=== PATIENT | male | born 1950 | race Two or more races ===

== ENCOUNTER → 2017-12-25 | Outpatient (CLI) | payer MEDICARE, MEDICAID ==
[2017-12-25 09:28] LABS: Basophils # (auto) 0 uL; Basophils % (auto) 0.7 % (0.0-2.0); Eosinophils # (auto) 0.2 uL; Eosinophils % (auto) 3.8 % (0.0-7.0); Hematocrit 43.9 % (41.0-53.0); Hemoglobin 14.4 g/dL (13.5-17.5); Lymphocytes # (auto) 0.9 uL; Lymphocytes % (auto) 14.4 % (10.0-50.0); Mean Corpuscular Hemoglobin 28.5 pg (28.0-32.0); Mean Corpuscular Hgb Conc. 32.7 g/dL (32.0-36.0); Mean Corpuscular Volume 87.3 fL (80.0-100.0); Monocytes # (auto) 0.4 uL; Monocytes % (auto) 6.2 % (0.0-12.0); Neutrophils # (auto) 4.7 uL; Neutrophils % (auto) 74.9 % (37.0-80.0); Platelet Count (auto) 212 10^3/uL (140-450); Red Blood Cells 5.03 10^6/uL (4.5-5.90); Red Cell Distribution Width 13.5 % (11.8-14.3); White Blood Cell 6.3 10^3/uL (4.4-10.8)
[2017-12-25 09:29] LABS: Urine Bacteria NONE SEEN /hpf (None Seen); Urine Blood Negative /uL (Negative); Urine Specific Gravity 1.018 (1.001-1.035); Urine WBC <1 /hpf (0 - 3)
[2017-12-25 09:54] LABS: Potassium 3.6 mmol/L (3.5-5.1)
[2017-12-25 10:00] LABS: BUN/Creatinine Ratio 9.1; Bilirubin, Total 0.3 mg/dL (0.2-1.0); Total Protein 8.5 g/dL (6.4-8.2)
== END | disposition home or self-care (01) ==
LOC: LAB 08:30
PROVIDERS: ATTEND Nurse Practitioner
DX: E11.49 Type 2 diabetes mellitus with other diabetic neurological complication (principal); E78.5 Hyperlipidemia, unspecified
CPT/HCPCS: 36415; 80053; 80061; 81001; 82043; 83036; 85025

== ENCOUNTER → 2018-07-16 | Outpatient (CLI) | payer MEDICARE, MEDICAID ==
[2018-07-16 09:11] LABS: Urine Blood TRACE /uL (Negative); Urine Specific Gravity 1.027 (1.001-1.035)
[2018-07-16 09:14] LABS: Basophils # (auto) 0 uL; Basophils % (auto) 0.6 % (0.0-2.0); Eosinophils # (auto) 0.2 uL; Eosinophils % (auto) 3.1 % (0.0-7.0); Hematocrit 40.9 % (41.0-53.0); Hemoglobin 13.4 g/dL (13.5-17.5); Lymphocytes # (auto) 1.1 uL; Lymphocytes % (auto) 17.6 % (10.0-50.0); Mean Corpuscular Hemoglobin 27.6 pg (28.0-32.0); Mean Corpuscular Hgb Conc. 32.8 g/dL (32.0-36.0); Mean Corpuscular Volume 84.1 fL (80.0-100.0); Monocytes # (auto) 0.5 uL; Monocytes % (auto) 7.7 % (0.0-12.0); Neutrophils # (auto) 4.5 uL; Nucleated Red Blood Cells % 0.1 %; Platelet Count (auto) 179 10^3/uL (140-450); Red Blood Cells 4.86 10^6/uL (4.5-5.90); Red Cell Distribution Width 13.5 % (11.8-14.3); White Blood Cell 6.3 10^3/uL (4.4-10.8)
[2018-07-16 09:29] LABS: INR 0.99 (0.9-1.15); Partial Thromboplastin Time 26.6 sec (23.64-32.05)
[2018-07-16 09:47] LABS: Albumin 3.9 g/dL (3.4-5.0); Calcium 8.8 mg/dL (8.5-10.1); Potassium 3.5 mmol/L (3.5-5.1)
[2018-07-16 09:51] LABS: BUN/Creatinine Ratio 9.4; Bilirubin, Total 0.4 mg/dL (0.2-1.0); Total Protein 7.6 g/dL (6.4-8.2)
== END | disposition home or self-care (01) ==
LOC: LAB 08:02
PROVIDERS: ATTEND Nurse Practitioner
DX: Z01.818 Encounter for other preprocedural examination (principal); E11.9 Type 2 diabetes mellitus without complications
CPT/HCPCS: 36415; 80053; 80061; 81003; 82043; 83036; 84443; 85025; 85610; 85730

== ENCOUNTER → 2018-10-21 | Outpatient (CLI) | payer MEDICARE, MEDICAID ==
[2018-10-21 09:54] LABS: Basophils # (auto) 0 uL; Basophils % (auto) 0.9 % (0.0-2.0); Eosinophils # (auto) 0.2 uL; Hemoglobin 13.3 g/dL (13.5-17.5); Lymphocytes # (auto) 0.8 uL; Lymphocytes % (auto) 15.9 % (10.0-50.0); Mean Corpuscular Hgb Conc. 33.2 g/dL (32.0-36.0); Mean Corpuscular Volume 84.5 fL (80.0-100.0); Monocytes # (auto) 0.4 uL; Monocytes % (auto) 7.5 % (0.0-12.0); Neutrophils # (auto) 3.7 uL; Neutrophils % (auto) 71.7 % (37.0-80.0); Platelet Count (auto) 153 10^3/uL (140-450); Red Blood Cells 4.74 10^6/uL (4.5-5.90); Red Cell Distribution Width 13.1 % (11.8-14.3); White Blood Cell 5.1 10^3/uL (4.4-10.8)
[2018-10-21 10:21] LABS: Potassium 3.6 mmol/L (3.5-5.1)
[2018-10-21 10:29] LABS: Albumin 3.6 g/dL (3.4-5.0); BUN/Creatinine Ratio 9.8; Bilirubin, Total 0.3 mg/dL (0.2-1.0); Calcium 8.4 mg/dL (8.5-10.1); Total Protein 7.6 g/dL (6.4-8.2)
== END | disposition home or self-care (01) ==
LOC: LAB 08:58
PROVIDERS: ATTEND Nurse Practitioner
DX: E78.5 Hyperlipidemia, unspecified (principal); E11.49 Type 2 diabetes mellitus with other diabetic neurological complication
CPT/HCPCS: 36415; 80053; 80061; 83036; 84443; 85025

== ENCOUNTER → 2018-12-31 | Outpatient (CLI) | payer MEDICARE, MEDICAID ==
[2018-12-31 09:26] LABS: Basophils # (auto) 0 uL; Basophils % (auto) 0.8 % (0.0-2.0); Eosinophils # (auto) 0.2 uL; Eosinophils % (auto) 3.8 % (0.0-7.0); Hematocrit 41.2 % (41.0-53.0); Hemoglobin 13.3 g/dL (13.5-17.5); Lymphocytes # (auto) 0.7 uL; Lymphocytes % (auto) 14.8 % (10.0-50.0); Mean Corpuscular Hemoglobin 27.7 pg (28.0-32.0); Mean Corpuscular Hgb Conc. 32.4 g/dL (32.0-36.0); Mean Corpuscular Volume 85.5 fL (80.0-100.0); Monocytes # (auto) 0.3 uL; Monocytes % (auto) 6.6 % (0.0-12.0); Neutrophils # (auto) 3.7 uL; Platelet Count (auto) 169 10^3/uL (140-450); Red Blood Cells 4.82 10^6/uL (4.5-5.90); Red Cell Distribution Width 13.6 % (11.8-14.3)
[2018-12-31 10:49] LABS: Albumin 3.7 g/dL (3.4-5.0); Calcium 9.2 mg/dL (8.5-10.1); Potassium 3.8 mmol/L (3.5-5.1)
[2018-12-31 10:54] LABS: BUN/Creatinine Ratio 9.2; Bilirubin, Total 0.2 mg/dL (0.2-1.0); Total Protein 7.4 g/dL (6.4-8.2)
== END | disposition home or self-care (01) ==
LOC: LAB 08:46
PROVIDERS: ATTEND Nurse Practitioner
DX: E03.9 Hypothyroidism, unspecified (principal); E11.9 Type 2 diabetes mellitus without complications
CPT/HCPCS: 36415; 80053; 80061; 83036; 84443; 85025

== ENCOUNTER → 2019-04-28 | Outpatient (CLI) | payer MEDICARE, MEDICAID ==
[2019-04-28 10:49] LABS: Basophils # (auto) 0 10 ^3/uL (0-0.2); Basophils % (auto) 0.8 % (0.0-2.0); Eosinophils # (auto) 0.2 10 ^3/uL (0-0.8); Eosinophils % (auto) 3.2 % (0.0-7.0); Hematocrit 41.8 % (41.0-53.0); Hemoglobin 13.5 g/dL (13.5-17.5); Lymphocytes # (auto) 0.8 10 ^3/uL (0.4-5.4); Lymphocytes % (auto) 14.9 % (10.0-50.0); Mean Corpuscular Hemoglobin 27.7 pg (28.0-32.0); Mean Corpuscular Hgb Conc. 32.2 g/dL (32.0-36.0); Mean Corpuscular Volume 85.9 fL (80.0-100.0); Monocytes # (auto) 0.4 10 ^3/uL (0-1.3); Monocytes % (auto) 7.6 % (0.0-12.0); Neutrophils % (auto) 73.5 % (37.0-80.0); Nucleated Red Blood Cells % 0.1 %; Platelet Count (auto) 171 10^3/uL (140-450); Red Blood Cells 4.86 10^6/uL (4.5-5.90); Red Cell Distribution Width 13.9 % (11.8-14.3); White Blood Cell 5.4 10^3/uL (4.4-10.8)
[2019-04-28 11:05] LABS: Urine Bacteria NONE SEEN /hpf (None Seen); Urine Blood Negative /uL (Negative); Urine Mucus FEW (None Seen); Urine Specific Gravity 1.022 (1.001-1.035); Urine WBC 4 /hpf (0 - 3)
[2019-04-28 11:25] LABS: Magnesium 2.3 mg/dL (1.6-2.6); Potassium 4.5 mmol/L (3.5-5.1)
[2019-04-28 11:32] LABS: Albumin 3.7 g/dL (3.4-5.0); BUN/Creatinine Ratio 10.5; Bilirubin, Total 0.2 mg/dL (0.2-1.0); Calcium 9.4 mg/dL (8.5-10.1); Phosphorus 3.9 mg/dL (2.5-4.90); Total Protein 7.6 g/dL (6.4-8.2)
== END | disposition home or self-care (01) ==
LOC: LAB 10:29
PROVIDERS: ATTEND Nurse Practitioner
DX: N18.3 Chronic kidney disease, stage 3 (moderate) (principal); E78.5 Hyperlipidemia, unspecified; N39.0 Urinary tract infection, site not specified
CPT/HCPCS: 36415; 80053; 80061; 81001; 83735; 83970; 84100; 84154; 84443; 85025; 87086

== ENCOUNTER 2020-01-13 17:41 | Inpatient (IN) | payer MEDICARE, MEDICAID ==
[~2020-01-13] VITALS: Ht 177.8 cm; Wt 95.0 kg
[2020-01-13 18:33] LABS: Basophils # (auto) 0 10 ^3/uL (0-0.2); Basophils % (auto) 0.1 % (0.0-2.0); Eosinophils # (auto) 0 10 ^3/uL (0-0.8); Eosinophils % (auto) 0.1 % (0.0-7.0); Hematocrit 35.6 % (41.0-53.0); Hemoglobin 11.6 g/dL (13.5-17.5); Lymphocytes # (auto) 0.3 10 ^3/uL (0.4-5.4); Lymphocytes % (auto) 3.2 % (10.0-50.0); Mean Corpuscular Hemoglobin 27.3 pg (28.0-32.0); Mean Corpuscular Hgb Conc. 32.5 g/dL (32.0-36.0); Mean Corpuscular Volume 83.8 fL (80.0-100.0); Monocytes # (auto) 0.4 10 ^3/uL (0-1.3); Monocytes % (auto) 3.7 % (0.0-12.0); Neutrophils # (auto) 9.1 10 ^3/uL (1.6-8.6); Neutrophils % (auto) 92.9 % (37.0-80.0); Platelet Count (auto) 138 10^3/uL (140-450); Red Blood Cells 4.25 10^6/uL (4.5-5.90); Red Cell Distribution Width 15.2 % (11.8-14.3); White Blood Cell 9.8 10^3/uL (4.4-10.8)
[2020-01-13 18:49] LABS: Alanine Aminotransferase 42 U/L (16-61); Albumin 2.8 g/dL (3.4-5.0); Anion Gap 9 (5-15); Aspartate Aminotransferase 36 U/L (15-37); BUN/Creatinine Ratio 10.4; Blood Urea Nitrogen 15 mg/dL (7-18); Calcium 8.3 mg/dL (8.5-10.1); Carbon Dioxide 19 mmol/L (21-32); Chloride 115 mmol/L (98-107); GFR African American 63 mL/min; GFR Non-African American 52 mL/min; Glucose 85 mg/dL (74-106); Potassium 3.3 mmol/L (3.5-5.1); Sodium 143 mmol/L (136-145)
[2020-01-13 18:51] LABS: Alkaline Phosphatase 79 U/L (45-117); Bilirubin, Total 0.4 mg/dL (0.2-1.0); Total Protein 6.8 g/dL (6.4-8.2)
[2020-01-13] MEDS ORDERED: ALBUTEROL SULF 2.5 MG/0.5ML(0.5%) NEB SOLN NEB ONE (19:30)
[2020-01-13] MEDS ORDERED: methylPREDNISolone SOD SUCC 125 MG/2 ML VL IV ONE (19:30)
[2020-01-13] MEDS ORDERED: IPRATROPIUM BROM 0.5 MG/2.5ML INH SOL NEB ONE (19:30)
[2020-01-13] MEDS ORDERED: ACETAMINOPHEN 325 MG TAB PO ONE (20:15)
[2020-01-13 21:59] LABS: Urine Bacteria NONE SEEN /hpf (None Seen); Urine Blood Negative /uL (Negative); Urine Specific Gravity 1.014 (1.001-1.035); Urine WBC <1 /hpf (0 - 3)
[2020-01-13] MEDS ORDERED: POTASSIUM CHL 20 Meq TABLET PO ONE (23:00)
[2020-01-13] MEDS ORDERED: cefTRIAXone 1GM/50ML D5W 50 ML IV ONE (23:00)
[2020-01-14 00:13] LABS: INR 1.08 (0.9-1.15); Partial Thromboplastin Time 35.9 sec (23.0-31.2)
[2020-01-14] MEDS ORDERED: ONDANSETRON HCL 4 MG/2 ML VIAL IV PRN (00:45)
[2020-01-14] MEDS ORDERED: NITROGLYCERIN 0.4 MG SL TAB SL PRN (00:45)
[2020-01-14] MEDS ORDERED: TEMAZEPAM 15 MG CAP PO PRN (00:45)
[2020-01-14] MEDS ORDERED: MORPHINE SULF INJ 2 MG/ML SYRINGE 1ML IV PRN (00:45)
[2020-01-14 01:23] LABS: Magnesium 2.3 mg/dL (1.6-2.6)
[2020-01-14 01:34] LABS: Lactate Dehydrogenase 460 U/L (87-241)
[2020-01-14 01:40] LABS: CRP High Sensitivity > 19.0 mg/dL (< 0.3)
[2020-01-14 02:45] VITALS: BP 119/62
[2020-01-14] MEDS ORDERED: IPRATROPIUM BROM 0.5 MG/2.5ML INH SOL NEB SCH (06:00)
[2020-01-14] MEDS: LEVOTHYROXINE SODIUM 50 MCG TAB PO SCH (06:36)
[2020-01-14] MEDS ORDERED: ROPI2TAB4 PO (06:44)
[2020-01-14] MEDS ORDERED: PRA1C PO (06:44)
[2020-01-14] MEDS ORDERED: QUET300T23 PO (06:44)
[2020-01-14] MEDS ORDERED: SIMV-8 PO (06:44)
[2020-01-14] MEDS ORDERED: METH500T22 PO (06:44)
[2020-01-14] MEDS ORDERED: CALC667C PO (06:44)
[2020-01-14] MEDS ORDERED: FAMO-12 PO (06:44)
[2020-01-14] MEDS ORDERED: METO25TA5 PO (06:44)
[2020-01-14] MEDS ORDERED: LEVO50TA7 PO (06:44)
[2020-01-14] MEDS ORDERED: ZOLP5TAB5 PO (06:44)
[2020-01-14] MEDS ORDERED: GLIP10TA9 PO (06:44)
[2020-01-14] MEDS ORDERED: PREG50CA PO (06:44)
[2020-01-14] MEDS ORDERED: SERT-274 PO (06:44)
[2020-01-14] MEDS ORDERED: B-CO-15 OR (06:44)
[2020-01-14] MEDS ORDERED: GABA300C10 PO (06:44)
[2020-01-14] MEDS ORDERED: TOPI1CAP24 OR (06:44)
[2020-01-14] MEDS: BUDESONIDE (INHALATION) 180 MCG IH IN SCH ×3 (06:46→21:31)
[2020-01-14 09:09] VITALS: BP 127/63
[2020-01-14] MEDS ORDERED: DexAMETHasone SOD PHOS 10MG/1ML VIAL INJ IV SCH (10:00)
[2020-01-14] MEDS ORDERED: REMDESIVIR PER PHARMACY IV SCH (12:15)
[2020-01-14] MEDS ORDERED: DEXTROSE (50%) 50ML SYRG IV PRN (12:15)
[2020-01-14] MEDS ORDERED: methylPREDNISolone SOD SUCC 40 MG/ML VL IM ONE (12:15)
[2020-01-14] MEDS: DOXYCYCLINE 100MG/250ML 250 ML IV SCH ×2 (12:16→22:32)
[2020-01-14] MEDS: ASPirin 81 mg TAB PO SCH (12:16)
[2020-01-14] MEDS: ZINC SULFATE 220mg CAP or TAB PO SCH (12:17)
[2020-01-14] MEDS: ASCORBIC ACID 1,000 MG TAB PO SCH (12:17)
[2020-01-14] MEDS: CHOLECALCIFEROL (VITD3) 2,000 UNIT CAP PO SCH (12:17)
[2020-01-14] MEDS: FAMOTIDINE 20 MG TAB PO SCH ×2 (12:17→22:33)
[2020-01-14] MEDS: ENOXAPARIN SOD 40 MG/0.4 ML SYRINGE SC SCH ×2 (12:18→22:34)
[2020-01-14] MEDS ORDERED: HYDR-4798 PO (12:54)
[2020-01-14] MEDS ORDERED: MELO1TAB56 PO (12:54)
[2020-01-14] MEDS ORDERED: PRED20TA2 PO (12:54)
[2020-01-14 13:06] VITALS: BP 128/63
[2020-01-14] MEDS: methylPREDNISolone SOD SUCC 40 MG/ML VL IV SCH ×2 (16:11→22:31)
[2020-01-14] MEDS: GABAPENTIN 300 MG CAP PO SCH ×2 (16:12→22:32)
[2020-01-14 17:00] VITALS: BP 140/71
[2020-01-14] MEDS: ACCU-CHEK COMFORT CURVE STRIP VI SCH ×2 (17:18→22:34)
[2020-01-14] MEDS: InsuLIN REG 1unit/0.01ml Soln (100units/ml) SC SCH ×2 (17:19→23:03)
[2020-01-14] MEDS ORDERED: IPRATROPIUM BROMIDE HFA AER IN SCH (18:00)
[2020-01-14] MEDS: IPRATROPIUM BROMIDE HFA AER IN SCH (21:31)
[2020-01-14 22:00] VITALS: BP 133/73
[2020-01-14] MEDS ORDERED: ATORVASTATIN 20 MG TAB PO SCH (22:00)
[2020-01-14] MEDS: ATORVASTATIN 20 MG TAB PO SCH (22:32)
[2020-01-14] MEDS: TOPIRAMATE 100 MG TAB PO SCH (22:33)
[2020-01-14] MEDS: ACETAMINOPHEN 325 MG TAB PO PRN (23:02)
[2020-01-15 05:00] VITALS: BP 120/65
[2020-01-15] MEDS: BUDESONIDE (INHALATION) 180 MCG IH IN SCH ×2 (06:09→19:45)
[2020-01-15] MEDS: IPRATROPIUM BROMIDE HFA AER IN SCH ×2 (06:09→14:00)
[2020-01-15] MEDS: LEVOTHYROXINE SODIUM 50 MCG TAB PO SCH (06:53)
[2020-01-15] MEDS: ACCU-CHEK COMFORT CURVE STRIP VI SCH ×4 (06:53→22:59)
[2020-01-15] MEDS: methylPREDNISolone SOD SUCC 40 MG/ML VL IV SCH ×3 (06:53→22:27)
[2020-01-15] MEDS: GABAPENTIN 300 MG CAP PO SCH ×3 (06:53→22:26)
[2020-01-15] MEDS: InsuLIN REG 1unit/0.01ml Soln (100units/ml) SC SCH ×4 (06:55→23:18)
[2020-01-15 07:34] LABS: Albumin 2.7 g/dL (3.4-5.0); Calcium 8.5 mg/dL (8.5-10.1); Potassium 3.3 mmol/L (3.5-5.1)
[2020-01-15 07:38] LABS: BUN/Creatinine Ratio 18.5; Bilirubin, Total 0.4 mg/dL (0.2-1.0); Total Protein 7.3 g/dL (6.4-8.2)
[2020-01-15 08:06] LABS: Basophils # (auto) 0 10 ^3/uL (0-0.2); Basophils % (auto) 0.1 % (0.0-2.0); Eosinophils # (auto) 0 10 ^3/uL (0-0.8); Hemoglobin 13.1 g/dL (13.5-17.5); Monocytes # (auto) 0.4 10 ^3/uL (0-1.3); Neutrophils # (auto) 12.2 10 ^3/uL (1.6-8.6)
[2020-01-15 08:08] LABS: Hematocrit 41.7 % (41.0-53.0); Lymphocytes # (auto) 0.8 10 ^3/uL (0.4-5.4); Mean Corpuscular Hemoglobin 26.7 pg (28.0-32.0); Mean Corpuscular Hgb Conc. 31.3 g/dL (32.0-36.0); Mean Corpuscular Volume 85.2 fL (80.0-100.0); Monocytes % (auto) 3.3 % (0.0-12.0); Neutrophils % (auto) 90.6 % (37.0-80.0); Nucleated Red Blood Cells % 0.1 %; Platelet Count (auto) 180 10^3/uL (140-450); Red Blood Cells 4.89 10^6/uL (4.5-5.90); Red Cell Distribution Width 15.4 % (11.8-14.3); White Blood Cell 13.5 10^3/uL (4.4-10.8)
[2020-01-15 08:52] VITALS: BP 121/70
[2020-01-15 13:00] VITALS: BP 107/61
[2020-01-15] MEDS: ASPirin 81 mg TAB PO SCH (13:15)
[2020-01-15] MEDS: ZINC SULFATE 220mg CAP or TAB PO SCH (13:15)
[2020-01-15] MEDS: DOXYCYCLINE 100MG/250ML 250 ML IV SCH ×2 (13:15→23:00)
[2020-01-15] MEDS: CHOLECALCIFEROL (VITD3) 2,000 UNIT CAP PO SCH (13:16)
[2020-01-15] MEDS: FAMOTIDINE 20 MG TAB PO SCH ×2 (13:16→22:26)
[2020-01-15] MEDS: TOPIRAMATE 100 MG TAB PO SCH ×2 (13:16→22:27)
[2020-01-15] MEDS: SERTRALINE HCL 50 MG TAB PO SCH (13:16)
[2020-01-15] MEDS: ASCORBIC ACID 1,000 MG TAB PO SCH (13:16)
[2020-01-15] MEDS: ENOXAPARIN SOD 40 MG/0.4 ML SYRINGE SC SCH ×2 (13:17→22:28)
[2020-01-15 16:55] VITALS: BP 115/52
[2020-01-15] MEDS: LORazepam 2MG/ML-1ML VIAL IV PRN (19:39)
[2020-01-15] MEDS: IPRATROPIUM BROMIDE HFA AER IN PRN (21:09)
[2020-01-15 22:00] VITALS: BP 141/77
[2020-01-15] MEDS: ATORVASTATIN 20 MG TAB PO SCH (22:26)
[2020-01-16] VITALS (10 sets, daily range): BP systolic 114–133; BP diastolic 49–73
[2020-01-16] MEDS: LORazepam 2MG/ML-1ML VIAL IV PRN ×2 (03:59→20:31)
[2020-01-16] MEDS: methylPREDNISolone SOD SUCC 40 MG/ML VL IV SCH ×3 (06:00→22:55)
[2020-01-16] MEDS: GABAPENTIN 300 MG CAP PO SCH ×3 (06:00→22:56)
[2020-01-16] MEDS: ACCU-CHEK COMFORT CURVE STRIP VI SCH ×4 (06:44→22:57)
[2020-01-16] MEDS: InsuLIN REG 1unit/0.01ml Soln (100units/ml) SC SCH ×4 (06:48→22:58)
[2020-01-16] MEDS: LEVOTHYROXINE SODIUM 50 MCG TAB PO SCH (06:48)
[2020-01-16] MEDS: BUDESONIDE (INHALATION) 180 MCG IH IN SCH ×2 (08:08→20:10)
[2020-01-16] MEDS: FAMOTIDINE 20 MG TAB PO SCH ×2 (10:12→22:57)
[2020-01-16] MEDS: DOXYCYCLINE 100MG/250ML 250 ML IV SCH ×2 (10:12→22:55)
[2020-01-16] MEDS: ZINC SULFATE 220mg CAP or TAB PO SCH (10:14)
[2020-01-16] MEDS: ASPirin 81 mg TAB PO SCH (10:14)
[2020-01-16] MEDS: ASCORBIC ACID 1,000 MG TAB PO SCH (10:14)
[2020-01-16] MEDS: TOPIRAMATE 100 MG TAB PO SCH ×2 (10:15→22:57)
[2020-01-16] MEDS: SERTRALINE HCL 50 MG TAB PO SCH (10:15)
[2020-01-16] MEDS: CHOLECALCIFEROL (VITD3) 2,000 UNIT CAP PO SCH (10:15)
[2020-01-16] MEDS: ENOXAPARIN SOD 40 MG/0.4 ML SYRINGE SC SCH ×2 (10:16→22:57)
[2020-01-16] MEDS: IPRATROPIUM BROMIDE HFA AER IN PRN (20:38)
[2020-01-16] MEDS: ATORVASTATIN 20 MG TAB PO SCH (22:56)
[2020-01-17 05:00] VITALS: BP 134/76
[2020-01-17] MEDS: ACCU-CHEK COMFORT CURVE STRIP VI SCH ×4 (06:07→22:00)
[2020-01-17] MEDS: methylPREDNISolone SOD SUCC 40 MG/ML VL IV SCH ×3 (06:15→22:19)
[2020-01-17] MEDS: GABAPENTIN 300 MG CAP PO SCH ×3 (06:15→20:47)
[2020-01-17] MEDS: LEVOTHYROXINE SODIUM 50 MCG TAB PO SCH (06:16)
[2020-01-17] MEDS: LORazepam 2MG/ML-1ML VIAL IV PRN ×2 (06:16→20:48)
[2020-01-17] MEDS: InsuLIN REG 1unit/0.01ml Soln (100units/ml) SC SCH ×4 (06:17→22:00)
[2020-01-17] MEDS: BUDESONIDE (INHALATION) 180 MCG IH IN SCH ×2 (07:32→23:00)
[2020-01-17 08:08] LABS: Basophils # (auto) 0 10 ^3/uL (0-0.2); Eosinophils # (auto) 0 10 ^3/uL (0-0.8); Hematocrit 39.7 % (41.0-53.0); Lymphocytes # (auto) 0.5 10 ^3/uL (0.4-5.4); Lymphocytes % (auto) 6.5 % (10.0-50.0); Mean Corpuscular Hemoglobin 27.5 pg (28.0-32.0); Mean Corpuscular Hgb Conc. 32.8 g/dL (32.0-36.0); Mean Corpuscular Volume 83.9 fL (80.0-100.0); Monocytes # (auto) 0.2 10 ^3/uL (0-1.3); Monocytes % (auto) 2.6 % (0.0-12.0); Neutrophils # (auto) 7.2 10 ^3/uL (1.6-8.6); Neutrophils % (auto) 90.9 % (37.0-80.0); Nucleated Red Blood Cells % 0.1 %; Platelet Count (auto) 172 10^3/uL (140-450); Red Blood Cells 4.74 10^6/uL (4.5-5.90); White Blood Cell 7.9 10^3/uL (4.4-10.8)
[2020-01-17 08:29] VITALS: BP 125/69
[2020-01-17 08:31] LABS: Potassium 3.6 mmol/L (3.5-5.1)
[2020-01-17 08:40] LABS: BUN/Creatinine Ratio 22.3; Calcium 8.4 mg/dL (8.5-10.1)
[2020-01-17] MEDS: ASCORBIC ACID 1,000 MG TAB PO SCH (09:50)
[2020-01-17] MEDS: DOXYCYCLINE 100MG/250ML 250 ML IV SCH ×2 (09:50→22:21)
[2020-01-17] MEDS: SERTRALINE HCL 50 MG TAB PO SCH (09:50)
[2020-01-17] MEDS: TOPIRAMATE 100 MG TAB PO SCH ×2 (09:51→22:19)
[2020-01-17] MEDS: ASPirin 81 mg TAB PO SCH (09:51)
[2020-01-17] MEDS: ZINC SULFATE 220mg CAP or TAB PO SCH (09:51)
[2020-01-17] MEDS: CHOLECALCIFEROL (VITD3) 2,000 UNIT CAP PO SCH (09:52)
[2020-01-17] MEDS: ENOXAPARIN SOD 40 MG/0.4 ML SYRINGE SC SCH ×2 (09:53→22:21)
[2020-01-17] MEDS: FAMOTIDINE 20 MG TAB PO SCH ×2 (10:36→22:19)
[2020-01-17 12:24] VITALS: BP 114/68
[2020-01-17 16:49] VITALS: BP 135/73
[2020-01-17] MEDS ORDERED: REMDESIVIR 200 MG in NS 210ml LOADING DOSE ADULT IV ONE (17:00)
[2020-01-17 18:01] VITALS: BP 122/71
[2020-01-17 21:52] VITALS: BP 113/51
[2020-01-17] MEDS: ATORVASTATIN 20 MG TAB PO SCH (22:19)
[2020-01-18] MEDS: LORazepam 2MG/ML-1ML VIAL IV PRN ×4 (02:37→22:48)
[2020-01-18 05:00] VITALS: BP 107/64
[2020-01-18] MEDS: GABAPENTIN 300 MG CAP PO SCH ×3 (05:58→21:14)
[2020-01-18] MEDS: ACCU-CHEK COMFORT CURVE STRIP VI SCH ×4 (05:59→22:46)
[2020-01-18] MEDS: LEVOTHYROXINE SODIUM 50 MCG TAB PO SCH (05:59)
[2020-01-18] MEDS: methylPREDNISolone SOD SUCC 40 MG/ML VL IV SCH ×3 (05:59→21:12)
[2020-01-18] MEDS: InsuLIN REG 1unit/0.01ml Soln (100units/ml) SC SCH ×4 (06:06→22:54)
[2020-01-18 07:21] LABS: Basophils # (auto) 0 10 ^3/uL (0-0.2); Basophils % (auto) 0.1 % (0.0-2.0); Eosinophils # (auto) 0 10 ^3/uL (0-0.8); Hematocrit 40.1 % (41.0-53.0); Hemoglobin 13.2 g/dL (13.5-17.5); Lymphocytes # (auto) 0.5 10 ^3/uL (0.4-5.4); Lymphocytes % (auto) 5.2 % (10.0-50.0); Mean Corpuscular Hemoglobin 27.4 pg (28.0-32.0); Mean Corpuscular Hgb Conc. 32.8 g/dL (32.0-36.0); Mean Corpuscular Volume 83.4 fL (80.0-100.0); Monocytes # (auto) 0.3 10 ^3/uL (0-1.3); Monocytes % (auto) 2.9 % (0.0-12.0); Neutrophils # (auto) 8.6 10 ^3/uL (1.6-8.6); Neutrophils % (auto) 91.8 % (37.0-80.0); Platelet Count (auto) 175 10^3/uL (140-450); Red Blood Cells 4.81 10^6/uL (4.5-5.90); Red Cell Distribution Width 14.6 % (11.8-14.3); White Blood Cell 9.4 10^3/uL (4.4-10.8)
[2020-01-18 07:28] LABS: Potassium 4.3 mmol/L (3.5-5.1)
[2020-01-18 07:38] LABS: Albumin 2.6 g/dL (3.4-5.0); BUN/Creatinine Ratio 23.7; Bilirubin, Total 0.5 mg/dL (0.2-1.0); Calcium 8.5 mg/dL (8.5-10.1); Magnesium 2.8 mg/dL (1.6-2.6); Total Protein 7.1 g/dL (6.4-8.2)
[2020-01-18] MEDS: BUDESONIDE (INHALATION) 180 MCG IH IN SCH ×2 (08:02→21:47)
[2020-01-18] MEDS: IPRATROPIUM BROMIDE HFA AER IN PRN (08:02)
[2020-01-18 09:00] VITALS: BP 123/72
[2020-01-18] MEDS: FAMOTIDINE 20 MG TAB PO SCH ×2 (10:00→21:13)
[2020-01-18] MEDS: CHOLECALCIFEROL (VITD3) 2,000 UNIT CAP PO SCH (10:17)
[2020-01-18] MEDS: DOXYCYCLINE 100MG/250ML 250 ML IV SCH ×2 (10:17→21:12)
[2020-01-18] MEDS: ASPirin 81 mg TAB PO SCH (10:18)
[2020-01-18] MEDS: ZINC SULFATE 220mg CAP or TAB PO SCH (10:18)
[2020-01-18] MEDS: TOPIRAMATE 100 MG TAB PO SCH ×2 (10:18→21:13)
[2020-01-18] MEDS: ASCORBIC ACID 1,000 MG TAB PO SCH (10:19)
[2020-01-18] MEDS: ENOXAPARIN SOD 40 MG/0.4 ML SYRINGE SC SCH (10:19)
[2020-01-18] MEDS: SERTRALINE HCL 50 MG TAB PO SCH (10:20)
[2020-01-18 13:00] VITALS: BP 130/67
[2020-01-18 17:00] VITALS: BP 131/66
[2020-01-18] MEDS: REMDESIVIR 100 MG in SODIUM CHL 0.9% 250 ML IV SCH (17:06)
[2020-01-18] MEDS: ATORVASTATIN 20 MG TAB PO SCH (21:13)
[2020-01-18 22:00] VITALS: BP 127/74
[2020-01-19] MEDS: ENOXAPARIN SOD 40 MG/0.4 ML SYRINGE SC SCH ×3 (00:20→21:54)
[2020-01-19 05:00] VITALS: BP 135/70
[2020-01-19] MEDS: GABAPENTIN 300 MG CAP PO SCH ×3 (05:44→21:54)
[2020-01-19] MEDS: methylPREDNISolone SOD SUCC 40 MG/ML VL IV SCH ×3 (05:44→21:55)
[2020-01-19] MEDS: InsuLIN REG 1unit/0.01ml Soln (100units/ml) SC SCH ×4 (06:28→22:13)
[2020-01-19] MEDS: ACCU-CHEK COMFORT CURVE STRIP VI SCH ×4 (06:28→22:11)
[2020-01-19] MEDS: BUDESONIDE (INHALATION) 180 MCG IH IN SCH ×2 (06:43→21:07)
[2020-01-19] MEDS: LEVOTHYROXINE SODIUM 50 MCG TAB PO SCH (06:49)
[2020-01-19 08:50] VITALS: BP 125/70
[2020-01-19] MEDS: ASPirin 81 mg TAB PO SCH (10:27)
[2020-01-19] MEDS: TOPIRAMATE 100 MG TAB PO SCH ×2 (10:28→21:54)
[2020-01-19] MEDS: CHOLECALCIFEROL (VITD3) 2,000 UNIT CAP PO SCH (10:28)
[2020-01-19] MEDS: FAMOTIDINE 20 MG TAB PO SCH ×2 (10:28→23:13)
[2020-01-19] MEDS: ASCORBIC ACID 1,000 MG TAB PO SCH (10:28)
[2020-01-19] MEDS: SERTRALINE HCL 50 MG TAB PO SCH (10:29)
[2020-01-19] MEDS: ZINC SULFATE 220mg CAP or TAB PO SCH (10:29)
[2020-01-19] MEDS: LORazepam 2MG/ML-1ML VIAL IV PRN ×2 (10:30→22:25)
[2020-01-19] MEDS ORDERED: FUROSEMIDE 20 MG/2 ML VIAL IV ONE (12:30)
[2020-01-19] MEDS ORDERED: POTASSIUM CHL 20 Meq TABLET PO ONE (12:30)
[2020-01-19 13:00] VITALS: BP 114/68
[2020-01-19 17:00] VITALS: BP 131/68
[2020-01-19] MEDS: REMDESIVIR 100 MG in SODIUM CHL 0.9% 250 ML IV SCH (17:08)
[2020-01-19] MEDS: IPRATROPIUM BROMIDE HFA AER IN PRN (21:10)
[2020-01-19] MEDS: ATORVASTATIN 20 MG TAB PO SCH (21:54)
[2020-01-19 22:00] VITALS: BP 129/69
[2020-01-20 05:00] VITALS: BP 111/74
[2020-01-20] MEDS: GABAPENTIN 300 MG CAP PO SCH ×3 (06:18→22:23)
[2020-01-20] MEDS: ACCU-CHEK COMFORT CURVE STRIP VI SCH ×4 (06:18→22:00)
[2020-01-20] MEDS: methylPREDNISolone SOD SUCC 40 MG/ML VL IV SCH ×3 (06:18→22:23)
[2020-01-20] MEDS: LEVOTHYROXINE SODIUM 50 MCG TAB PO SCH (06:18)
[2020-01-20] MEDS: InsuLIN REG 1unit/0.01ml Soln (100units/ml) SC SCH ×4 (06:20→22:00)
[2020-01-20] MEDS: LORazepam 2MG/ML-1ML VIAL IV PRN ×2 (07:43→22:23)
[2020-01-20] MEDS: BUDESONIDE (INHALATION) 180 MCG IH IN SCH ×2 (07:58→23:04)
[2020-01-20] MEDS: IPRATROPIUM BROMIDE HFA AER IN PRN ×2 (07:59→23:04)
[2020-01-20 08:50] LABS: Potassium 4.3 mmol/L (3.5-5.1)
[2020-01-20 09:00] VITALS: BP 122/69
[2020-01-20 09:12] LABS: Albumin 2.7 g/dL (3.4-5.0); BUN/Creatinine Ratio 26.4; Bilirubin, Total 0.6 mg/dL (0.2-1.0); Calcium 8.7 mg/dL (8.5-10.1); Total Protein 7.6 g/dL (6.4-8.2)
[2020-01-20] MEDS: TOPIRAMATE 100 MG TAB PO SCH ×2 (10:00→22:24)
[2020-01-20] MEDS: SERTRALINE HCL 50 MG TAB PO SCH (12:25)
[2020-01-20] MEDS: CHOLECALCIFEROL (VITD3) 2,000 UNIT CAP PO SCH (12:25)
[2020-01-20] MEDS: ASCORBIC ACID 1,000 MG TAB PO SCH (12:25)
[2020-01-20] MEDS: ZINC SULFATE 220mg CAP or TAB PO SCH (12:26)
[2020-01-20] MEDS: FAMOTIDINE 20 MG TAB PO SCH ×2 (12:26→22:23)
[2020-01-20] MEDS: ASPirin 81 mg TAB PO SCH (12:26)
[2020-01-20] MEDS: ENOXAPARIN SOD 40 MG/0.4 ML SYRINGE SC SCH ×2 (12:26→22:24)
[2020-01-20 13:00] VITALS: BP 128/60
[2020-01-20 17:00] VITALS: BP_SYST 121; BP_SYST 145; BP_DIAS 50; BP_DIAS 83
[2020-01-20] MEDS: REMDESIVIR 100 MG in SODIUM CHL 0.9% 250 ML IV SCH (19:35)
[2020-01-20 19:50] VITALS: BP 119/73
[2020-01-20 20:40] VITALS: BP 118/67
[2020-01-20] MEDS: ATORVASTATIN 20 MG TAB PO SCH (22:23)
[2020-01-21] MEDS: LORazepam 2MG/ML-1ML VIAL IV PRN ×3 (04:22→17:54)
[2020-01-21 05:30] VITALS: BP 102/51
[2020-01-21] MEDS: LEVOTHYROXINE SODIUM 50 MCG TAB PO SCH (06:06)
[2020-01-21] MEDS: GABAPENTIN 300 MG CAP PO SCH ×3 (06:06→22:30)
[2020-01-21] MEDS: ACCU-CHEK COMFORT CURVE STRIP VI SCH ×4 (06:07→22:31)
[2020-01-21] MEDS: methylPREDNISolone SOD SUCC 40 MG/ML VL IV SCH ×3 (06:07→22:30)
[2020-01-21] MEDS: InsuLIN REG 1unit/0.01ml Soln (100units/ml) SC SCH ×4 (06:07→22:47)
[2020-01-21] MEDS: BUDESONIDE (INHALATION) 180 MCG IH IN SCH ×2 (06:32→20:25)
[2020-01-21 09:00] VITALS: BP 118/71
[2020-01-21] MEDS: CHOLECALCIFEROL (VITD3) 2,000 UNIT CAP PO SCH (10:45)
[2020-01-21] MEDS: ZINC SULFATE 220mg CAP or TAB PO SCH (10:45)
[2020-01-21] MEDS: ASCORBIC ACID 1,000 MG TAB PO SCH (10:45)
[2020-01-21] MEDS: ASPirin 81 mg TAB PO SCH (10:45)
[2020-01-21] MEDS: SERTRALINE HCL 50 MG TAB PO SCH (10:45)
[2020-01-21] MEDS: ENOXAPARIN SOD 40 MG/0.4 ML SYRINGE SC SCH ×2 (10:49→22:31)
[2020-01-21] MEDS: TOPIRAMATE 100 MG TAB PO SCH ×2 (10:50→22:31)
[2020-01-21] MEDS: FAMOTIDINE 20 MG TAB PO SCH ×2 (10:50→22:31)
[2020-01-21] MEDS ORDERED: REMDESIVIR PER PHARMACY IV SCH (11:30)
[2020-01-21 12:57] VITALS: BP 102/55
[2020-01-21] MEDS: REMDESIVIR 100 MG in SODIUM CHL 0.9% 250 ML IV SCH (16:15)
[2020-01-21 17:00] VITALS: BP 136/59
[2020-01-21] MEDS: IPRATROPIUM BROMIDE HFA AER IN PRN (20:30)
[2020-01-21] MEDS: ATORVASTATIN 20 MG TAB PO SCH (22:30)
[2020-01-21 23:41] VITALS: BP 120/51
[2020-01-22] MEDS: LORazepam 2MG/ML-1ML VIAL IV PRN ×3 (00:16→21:53)
[2020-01-22] MEDS: methylPREDNISolone SOD SUCC 40 MG/ML VL IV SCH ×3 (06:12→21:53)
[2020-01-22] MEDS: GABAPENTIN 300 MG CAP PO SCH ×3 (06:12→20:07)
[2020-01-22] MEDS: ACCU-CHEK COMFORT CURVE STRIP VI SCH ×4 (06:13→21:53)
[2020-01-22] MEDS: InsuLIN REG 1unit/0.01ml Soln (100units/ml) SC SCH ×4 (06:13→21:53)
[2020-01-22] MEDS: LEVOTHYROXINE SODIUM 50 MCG TAB PO SCH (06:13)
[2020-01-22 06:29] VITALS: BP 102/52
[2020-01-22 08:36] LABS: Basophils # (auto) 0 10 ^3/uL (0-0.2); Eosinophils # (auto) 0 10 ^3/uL (0-0.8); Lymphocytes # (auto) 0.2 10 ^3/uL (0.4-5.4); Monocytes # (auto) 0.3 10 ^3/uL (0-1.3); White Blood Cell 12.9 10^3/uL (4.4-10.8)
[2020-01-22 08:39] LABS: Basophils % (auto) 0.2 % (0.0-2.0); Hematocrit 47.1 % (41.0-53.0); Hemoglobin 14.4 g/dL (13.5-17.5); Lymphocytes % (auto) 1.9 % (10.0-50.0); Mean Corpuscular Hemoglobin 26.4 pg (28.0-32.0); Mean Corpuscular Hgb Conc. 30.6 g/dL (32.0-36.0); Mean Corpuscular Volume 86.3 fL (80.0-100.0); Monocytes % (auto) 2.1 % (0.0-12.0); Neutrophils # (auto) 12.3 10 ^3/uL (1.6-8.6); Neutrophils % (auto) 95.8 % (37.0-80.0); Platelet Count (auto) 274 10^3/uL (140-450); Red Blood Cells 5.45 10^6/uL (4.5-5.90)
[2020-01-22 09:00] VITALS: BP 128/76
[2020-01-22 09:00] LABS: BUN/Creatinine Ratio 30.5; Calcium 8.7 mg/dL (8.5-10.1); Potassium 4.2 mmol/L (3.5-5.1)
[2020-01-22] MEDS: BUDESONIDE (INHALATION) 180 MCG IH IN SCH ×3 (09:47→22:00)
[2020-01-22] MEDS: ASPirin 81 mg TAB PO SCH (10:55)
[2020-01-22] MEDS: TOPIRAMATE 100 MG TAB PO SCH ×2 (10:56→20:07)
[2020-01-22] MEDS: ZINC SULFATE 220mg CAP or TAB PO SCH (10:56)
[2020-01-22] MEDS: FAMOTIDINE 20 MG TAB PO SCH ×2 (10:56→20:07)
[2020-01-22] MEDS: ASCORBIC ACID 1,000 MG TAB PO SCH (10:57)
[2020-01-22] MEDS: ENOXAPARIN SOD 40 MG/0.4 ML SYRINGE SC SCH ×2 (10:58→20:08)
[2020-01-22] MEDS: CHOLECALCIFEROL (VITD3) 2,000 UNIT CAP PO SCH (10:58)
[2020-01-22] MEDS: SERTRALINE HCL 50 MG TAB PO SCH (10:58)
[2020-01-22 13:00] VITALS: BP 115/66
[2020-01-22 16:41] VITALS: BP 125/74
[2020-01-22] MEDS: ATORVASTATIN 20 MG TAB PO SCH (20:06)
[2020-01-22 20:18] VITALS: BP 157/69
[2020-01-23] MEDS: methylPREDNISolone SOD SUCC 40 MG/ML VL IV SCH ×3 (05:31→22:24)
[2020-01-23] MEDS: LEVOTHYROXINE SODIUM 50 MCG TAB PO SCH (05:31)
[2020-01-23] MEDS: GABAPENTIN 300 MG CAP PO SCH ×3 (05:31→22:24)
[2020-01-23] MEDS: LORazepam 2MG/ML-1ML VIAL IV PRN ×2 (05:31→22:25)
[2020-01-23 06:00] VITALS: BP 121/74
[2020-01-23] MEDS: InsuLIN REG 1unit/0.01ml Soln (100units/ml) SC SCH ×4 (06:37→22:26)
[2020-01-23] MEDS: ACCU-CHEK COMFORT CURVE STRIP VI SCH ×4 (06:37→22:25)
[2020-01-23] MEDS: BUDESONIDE (INHALATION) 180 MCG IH IN SCH (10:00)
[2020-01-23] MEDS: ASPirin 81 mg TAB PO SCH (10:37)
[2020-01-23] MEDS: ZINC SULFATE 220mg CAP or TAB PO SCH (10:37)
[2020-01-23] MEDS: FAMOTIDINE 20 MG TAB PO SCH ×2 (10:37→22:24)
[2020-01-23] MEDS: SERTRALINE HCL 50 MG TAB PO SCH (10:38)
[2020-01-23] MEDS: ENOXAPARIN SOD 40 MG/0.4 ML SYRINGE SC SCH (10:38)
[2020-01-23] MEDS: TOPIRAMATE 100 MG TAB PO SCH ×2 (10:38→22:24)
[2020-01-23] MEDS: ASCORBIC ACID 1,000 MG TAB PO SCH (10:38)
[2020-01-23] MEDS: CHOLECALCIFEROL (VITD3) 2,000 UNIT CAP PO SCH (10:38)
[2020-01-23 12:00] VITALS: BP 134/76
[2020-01-23] MEDS ORDERED: FUROSEMIDE 20 MG/2 ML VIAL IV ONE (13:00)
[2020-01-23] MEDS ORDERED: POTASSIUM CHL 20 Meq TABLET PO ONE (13:00)
[2020-01-23] MEDS: PIPERACILLIN-TAZOB 3.375GM 100 ML IV SCH ×2 (14:38→22:24)
[2020-01-23] MEDS: IPRATROPIUM BROMIDE HFA AER IN PRN (16:07)
[2020-01-23 17:00] VITALS: BP 126/91
[2020-01-23 22:00] VITALS: BP 123/52
[2020-01-23] MEDS: ATORVASTATIN 20 MG TAB PO SCH (22:24)
[2020-01-23] MEDS: ENOXAPARIN SOD 60 MG/0.6 ML SYRINGE SC SCH (22:25)
[2020-01-24 05:00] VITALS: BP 116/75
[2020-01-24] MEDS: methylPREDNISolone SOD SUCC 40 MG/ML VL IV SCH ×3 (07:08→21:27)
[2020-01-24] MEDS: LEVOTHYROXINE SODIUM 50 MCG TAB PO SCH (07:09)
[2020-01-24] MEDS: ACCU-CHEK COMFORT CURVE STRIP VI SCH ×4 (07:09→21:27)
[2020-01-24] MEDS: GABAPENTIN 300 MG CAP PO SCH ×3 (07:09→21:26)
[2020-01-24] MEDS: PIPERACILLIN-TAZOB 3.375GM 100 ML IV SCH ×3 (07:09→21:26)
[2020-01-24] MEDS: InsuLIN REG 1unit/0.01ml Soln (100units/ml) SC SCH ×4 (07:10→21:28)
[2020-01-24] MEDS: MORPHINE SULF INJ 2 MG/ML SYRINGE 1ML IV PRN ×2 (07:32→21:28)
[2020-01-24 09:00] VITALS: BP 128/82
[2020-01-24] MEDS: BUDESONIDE (INHALATION) 180 MCG IH IN SCH ×2 (10:00→21:36)
[2020-01-24] MEDS: FUROSEMIDE 20 MG/2 ML VIAL IV SCH (10:42)
[2020-01-24] MEDS: ASPirin 81 mg TAB PO SCH (10:43)
[2020-01-24] MEDS: POTASSIUM CHL 20 Meq TABLET PO SCH (10:43)
[2020-01-24] MEDS: ZINC SULFATE 220mg CAP or TAB PO SCH (10:43)
[2020-01-24] MEDS: ASCORBIC ACID 1,000 MG TAB PO SCH (10:44)
[2020-01-24] MEDS: FAMOTIDINE 20 MG TAB PO SCH ×2 (10:44→21:26)
[2020-01-24] MEDS: TOPIRAMATE 100 MG TAB PO SCH ×2 (10:44→21:27)
[2020-01-24] MEDS: CHOLECALCIFEROL (VITD3) 2,000 UNIT CAP PO SCH (10:44)
[2020-01-24] MEDS: SERTRALINE HCL 50 MG TAB PO SCH (10:44)
[2020-01-24] MEDS: ENOXAPARIN SOD 60 MG/0.6 ML SYRINGE SC SCH ×2 (10:45→21:26)
[2020-01-24] MEDS: IPRATROPIUM BROMIDE HFA AER IN PRN ×2 (12:42→21:36)
[2020-01-24 13:00] VITALS: BP 127/83
[2020-01-24 16:43] LABS: Basophils # (auto) 0 10 ^3/uL (0-0.2); Eosinophils # (auto) 0 10 ^3/uL (0-0.8); Hematocrit 46.7 % (41.0-53.0); Lymphocytes # (auto) 0.3 10 ^3/uL (0.4-5.4); Lymphocytes % (auto) 2.1 % (10.0-50.0); Mean Corpuscular Hemoglobin 26.9 pg (28.0-32.0); Mean Corpuscular Hgb Conc. 32.2 g/dL (32.0-36.0); Mean Corpuscular Volume 83.7 fL (80.0-100.0); Monocytes # (auto) 0.4 10 ^3/uL (0-1.3); Neutrophils # (auto) 13.8 10 ^3/uL (1.6-8.6); Neutrophils % (auto) 94.9 % (37.0-80.0); Nucleated Red Blood Cells % 0.1 %; Platelet Count (auto) 323 10^3/uL (140-450); Red Blood Cells 5.58 10^6/uL (4.5-5.90); Red Cell Distribution Width 14.2 % (11.8-14.3); White Blood Cell 14.5 10^3/uL (4.4-10.8)
[2020-01-24 17:00] VITALS: BP 117/74
[2020-01-24 17:01] LABS: BUN/Creatinine Ratio 28.1; Calcium 8.6 mg/dL (8.5-10.1); Potassium 3.9 mmol/L (3.5-5.1)
[2020-01-24] MEDS: ATORVASTATIN 20 MG TAB PO SCH (21:26)
[2020-01-24 22:00] VITALS: BP 139/74
[2020-01-25 04:55] VITALS: BP 119/72
[2020-01-25] MEDS: GABAPENTIN 300 MG CAP PO SCH ×3 (06:57→22:58)
[2020-01-25] MEDS: methylPREDNISolone SOD SUCC 40 MG/ML VL IV SCH ×3 (06:57→22:57)
[2020-01-25] MEDS: PIPERACILLIN-TAZOB 3.375GM 100 ML IV SCH ×3 (06:57→22:58)
[2020-01-25] MEDS: InsuLIN REG 1unit/0.01ml Soln (100units/ml) SC SCH ×4 (06:58→22:59)
[2020-01-25] MEDS: LEVOTHYROXINE SODIUM 50 MCG TAB PO SCH (06:58)
[2020-01-25] MEDS: ACCU-CHEK COMFORT CURVE STRIP VI SCH ×4 (06:58→22:58)
[2020-01-25] MEDS: BUDESONIDE (INHALATION) 180 MCG IH IN SCH ×2 (07:08→20:31)
[2020-01-25 09:00] VITALS: BP 125/75
[2020-01-25] MEDS: FUROSEMIDE 20 MG/2 ML VIAL IV SCH (09:12)
[2020-01-25] MEDS: POTASSIUM CHL 20 Meq TABLET PO SCH (09:13)
[2020-01-25] MEDS: TOPIRAMATE 100 MG TAB PO SCH ×2 (09:13→23:00)
[2020-01-25] MEDS: FAMOTIDINE 20 MG TAB PO SCH ×2 (09:13→22:58)
[2020-01-25] MEDS: ZINC SULFATE 220mg CAP or TAB PO SCH (09:13)
[2020-01-25] MEDS: ASPirin 81 mg TAB PO SCH (09:13)
[2020-01-25] MEDS: ASCORBIC ACID 1,000 MG TAB PO SCH (09:14)
[2020-01-25] MEDS: ENOXAPARIN SOD 60 MG/0.6 ML SYRINGE SC SCH ×2 (09:14→22:58)
[2020-01-25] MEDS: CHOLECALCIFEROL (VITD3) 2,000 UNIT CAP PO SCH (09:14)
[2020-01-25] MEDS: SERTRALINE HCL 50 MG TAB PO SCH (09:14)
[2020-01-25] MEDS: MORPHINE SULF INJ 2 MG/ML SYRINGE 1ML IV PRN ×3 (09:15→19:46)
[2020-01-25 13:00] VITALS: BP 114/66
[2020-01-25 15:38] LABS: Basophils # (auto) 0 10 ^3/uL (0-0.2); Eosinophils # (auto) 0 10 ^3/uL (0-0.8); Hematocrit 44.9 % (41.0-53.0); Hemoglobin 14.7 g/dL (13.5-17.5); Lymphocytes # (auto) 0.4 10 ^3/uL (0.4-5.4); Lymphocytes % (auto) 2.3 % (10.0-50.0); Mean Corpuscular Hgb Conc. 32.6 g/dL (32.0-36.0); Mean Corpuscular Volume 82.7 fL (80.0-100.0); Monocytes # (auto) 0.6 10 ^3/uL (0-1.3); Monocytes % (auto) 3.9 % (0.0-12.0); Neutrophils # (auto) 15.4 10 ^3/uL (1.6-8.6); Neutrophils % (auto) 93.8 % (37.0-80.0); Platelet Count (auto) 341 10^3/uL (140-450); Red Blood Cells 5.43 10^6/uL (4.5-5.90); Red Cell Distribution Width 14.2 % (11.8-14.3); White Blood Cell 16.5 10^3/uL (4.4-10.8)
[2020-01-25] MEDS: LORazepam 2MG/ML-1ML VIAL IV PRN (15:47)
[2020-01-25 16:00] LABS: Albumin 2.5 g/dL (3.4-5.0); Calcium 8.5 mg/dL (8.5-10.1); Magnesium 3.1 mg/dL (1.6-2.6); Potassium 3.7 mmol/L (3.5-5.1)
[2020-01-25 16:08] LABS: BUN/Creatinine Ratio 31.5; Bilirubin, Total 0.5 mg/dL (0.2-1.0); CRP High Sensitivity 1.71 mg/dL (< 0.3); Total Protein 7.2 g/dL (6.4-8.2)
[2020-01-25 16:55] VITALS: BP 111/63
[2020-01-25 22:00] VITALS: BP 120/71
[2020-01-25] MEDS: ATORVASTATIN 20 MG TAB PO SCH (22:58)
[2020-01-26] MEDS: MORPHINE SULF INJ 2 MG/ML SYRINGE 1ML IV PRN ×2 (02:03→20:11)
[2020-01-26 05:00] VITALS: BP 118/69
[2020-01-26] MEDS: methylPREDNISolone SOD SUCC 40 MG/ML VL IV SCH ×3 (06:34→21:12)
[2020-01-26] MEDS: PIPERACILLIN-TAZOB 3.375GM 100 ML IV SCH ×3 (06:35→21:13)
[2020-01-26] MEDS: LEVOTHYROXINE SODIUM 50 MCG TAB PO SCH (06:35)
[2020-01-26] MEDS: GABAPENTIN 300 MG CAP PO SCH ×3 (06:35→21:13)
[2020-01-26] MEDS: ACCU-CHEK COMFORT CURVE STRIP VI SCH ×4 (06:35→23:48)
[2020-01-26] MEDS: InsuLIN REG 1unit/0.01ml Soln (100units/ml) SC SCH ×3 (06:36→17:00)
[2020-01-26 08:52] LABS: Albumin 2.4 g/dL (3.4-5.0); BUN/Creatinine Ratio 35.8; Bilirubin, Total 0.5 mg/dL (0.2-1.0); Calcium 8.1 mg/dL (8.5-10.1); Total Protein 6.7 g/dL (6.4-8.2)
[2020-01-26] MEDS: BUDESONIDE (INHALATION) 180 MCG IH IN SCH ×2 (10:00→22:00)
[2020-01-26] MEDS: FUROSEMIDE 20 MG/2 ML VIAL IV SCH (10:00)
[2020-01-26] MEDS: ASPirin 81 mg TAB PO SCH (15:23)
[2020-01-26] MEDS: ZINC SULFATE 220mg CAP or TAB PO SCH (15:24)
[2020-01-26] MEDS: FAMOTIDINE 20 MG TAB PO SCH ×2 (15:24→21:13)
[2020-01-26] MEDS: CHOLECALCIFEROL (VITD3) 2,000 UNIT CAP PO SCH (15:24)
[2020-01-26] MEDS: ASCORBIC ACID 1,000 MG TAB PO SCH (15:24)
[2020-01-26] MEDS: TOPIRAMATE 100 MG TAB PO SCH ×2 (15:24→21:14)
[2020-01-26] MEDS: POTASSIUM CHL 20 Meq TABLET PO SCH (15:24)
[2020-01-26] MEDS: ENOXAPARIN SOD 60 MG/0.6 ML SYRINGE SC SCH ×2 (15:25→21:14)
[2020-01-26] MEDS: SERTRALINE HCL 50 MG TAB PO SCH (15:25)
[2020-01-26] MEDS ORDERED: PPN PER PHARMACY 0 ML IV SCH (18:00)
[2020-01-26 20:00] VITALS: BP 117/67
[2020-01-26] MEDS: AMINO ACID INFUSION IN D10W 1,000 ML IV NR (20:14)
[2020-01-26] MEDS: ATORVASTATIN 20 MG TAB PO SCH (21:13)
[2020-01-26 21:38] VITALS: BP 117/67
[2020-01-27] VITALS (20 sets, daily range): BP systolic 48–126; BP diastolic 23–75
[2020-01-27] MEDS ORDERED: DEXTROSE (50%) 50ML SYRG IV SCH
[2020-01-27] MEDS: InsuLIN REG 1unit/0.01ml Soln (100units/ml) SC SCH ×4 (00:01→18:21)
[2020-01-27] MEDS: MORPHINE SULF INJ 2 MG/ML SYRINGE 1ML IV PRN ×2 (00:01→04:05)
[2020-01-27] MEDS: ACETAMINOPHEN 325 MG TAB PO PRN (02:22)
[2020-01-27] MEDS: GABAPENTIN 300 MG CAP PO SCH (06:07)
[2020-01-27] MEDS: LEVOTHYROXINE SODIUM 50 MCG TAB PO SCH (06:07)
[2020-01-27] MEDS: ACCU-CHEK COMFORT CURVE STRIP VI SCH ×3 (06:07→18:15)
[2020-01-27] MEDS: PIPERACILLIN-TAZOB 3.375GM 100 ML IV SCH ×3 (06:07→22:00)
[2020-01-27] MEDS: methylPREDNISolone SOD SUCC 40 MG/ML VL IV SCH ×3 (06:07→22:00)
[2020-01-27] MEDS: BUDESONIDE (INHALATION) 180 MCG IH IN SCH ×2 (10:00→22:00)
[2020-01-27] MEDS: TOPIRAMATE 100 MG TAB PO SCH ×2 (10:36→22:00)
[2020-01-27] MEDS: FAMOTIDINE 20 MG TAB PO SCH ×2 (10:37→22:00)
[2020-01-27] MEDS: CHOLECALCIFEROL (VITD3) 2,000 UNIT CAP PO SCH (10:37)
[2020-01-27] MEDS: ENOXAPARIN SOD 60 MG/0.6 ML SYRINGE SC SCH ×2 (10:38→22:00)
[2020-01-27] MEDS: SERTRALINE HCL 50 MG TAB PO SCH (10:38)
[2020-01-27] MEDS: ASCORBIC ACID 1,000 MG TAB PO SCH (10:38)
[2020-01-27] MEDS: ASPirin 81 mg TAB PO SCH (10:38)
[2020-01-27] MEDS: ZINC SULFATE 220mg CAP or TAB PO SCH (10:38)
[2020-01-27 11:53] LABS: Hematocrit 33.7 % (41.0-53.0); Hemoglobin 10.8 g/dL (13.5-17.5); Mean Corpuscular Hemoglobin 26.7 pg (28.0-32.0); Mean Corpuscular Hgb Conc. 32.1 g/dL (32.0-36.0); Mean Corpuscular Volume 83.2 fL (80.0-100.0); Platelet Count (auto) 336 10^3/uL (140-450); Red Blood Cells 4.05 10^6/uL (4.5-5.90); Red Cell Distribution Width 14.1 % (11.8-14.3); White Blood Cell 24.2 10^3/uL (4.4-10.8)
[2020-01-27 12:01] LABS: Potassium 3.7 mmol/L (3.5-5.1)
[2020-01-27 12:04] LABS: Pre Albumin 13.1 mg/dL (20.0-40.0)
[2020-01-27 12:09] LABS: Albumin 2.5 g/dL (3.4-5.0); BUN/Creatinine Ratio 36.4; Bilirubin, Total 0.6 mg/dL (0.2-1.0); Calcium 8.1 mg/dL (8.5-10.1); Magnesium 3.1 mg/dL (1.6-2.6); Phosphorus 3.9 mg/dL (2.5-4.90); Total Protein 6.3 g/dL (6.4-8.2)
[2020-01-27 12:17] LABS: Basophils % (manual) 0 (0.0-2.0); Blast Cells 0; Eosinophils % (manual) 0 (0-7); Promyelocytes % 0; Reactive Lymphocytes 0
[2020-01-27 12:32] LABS: Band Neutrophils % (manual) 7; Lymphocytes % (manual) 2 (10.0-50.0); Metamyelocytes % 3; Monocytes % (manual) 2 (0-12); Myelocytes % 1
[2020-01-27] MEDS: SODIUM CHLORIDE 0.9% 1,000 ML IV SCH ×2 (13:00→23:00)
[2020-01-27] MEDS ORDERED: DOPamine 1600MCG/ML D5W 250 ML IV SCH (13:00)
[2020-01-27] MEDS: LORazepam 2MG/ML-1ML VIAL IV PRN (16:07)
[2020-01-27] MEDS ORDERED: SUCCINYLCHOLINE CHLORIDE 20 MG/ML 10ML VIAL IV ONE (18:30)
[2020-01-27] MEDS ORDERED: ROCURONIUM 10MG/ML 10ML VIAL IV ONE (18:33)
[2020-01-27] MEDS ORDERED: ETOMIDATE (2MG/ML) 20ML VIAL IV ONE ×2 (18:33→19:15)
[2020-01-27] MEDS ORDERED: MIDAZOLAM DRIP 50 mg/50mL 50 ML IV ONE ×2 (18:35→18:48)
[2020-01-27] MEDS ORDERED: PROPOFOL 100 ML IV ONE (18:35)
[2020-01-27] MEDS ORDERED: fentaNYL Drip 2500mCg/250mlNS 250 ML IV ONE (18:46)
[2020-01-27 19:21] LABS: Creatinine, Urine 154 mg/dL (30.0-125.0); Sodium Urine < 5 mmol/L (40-220)
[2020-01-27] MEDS: AMINO ACID INFUSION IN D10W 1,000 ML IV NR (19:49)
[2020-01-27] MEDS ORDERED: PPN PER PHARMACY IV NR ×9 (20:00)
[2020-01-27] MEDS: fentaNYL Drip 2500mCg/250mlNS 250 ML IV SCH (20:30)
[2020-01-27] MEDS: MIDAZOLAM DRIP 50 mg/50mL 50 ML IV SCH (20:30)
[2020-01-27] MEDS ORDERED: NOREPINEPHRINE 8 MG/250ML KIT 250 ML IV ONE (20:34)
[2020-01-27] MEDS ORDERED: ATROPINE SULFATE 1 MG/1 ML VIAL ONE (20:42)
[2020-01-27] MEDS ORDERED: ALBUMIN 5% 250 ML IV ONE (21:55)
[2020-01-27] MEDS: metroNIDAZOLE 500MG/100ML 100 ML IV SCH (22:00)
[2020-01-27] MEDS: ATORVASTATIN 20 MG TAB PO SCH (22:00)
[2020-01-27] MEDS: LINEZOLID 600MG/300ML 300 ML IV SCH (22:00)
[2020-01-27 22:13] LABS: Platelet Count (auto) 248 10^3/uL (140-450); Red Cell Distribution Width 14.3 % (11.8-14.3)
[2020-01-27 22:15] LABS: Hematocrit 21.6 % (41.0-53.0); Mean Corpuscular Hgb Conc. 31.1 g/dL (32.0-36.0); Mean Corpuscular Volume 86.7 fL (80.0-100.0); Red Blood Cells 2.49 10^6/uL (4.5-5.90); White Blood Cell 26.6 10^3/uL (4.4-10.8)
[2020-01-27] MEDS ORDERED: SODIUM BICARBONATE 8.4 % INJ 50ML VIAL IV ONE ×4 (22:16→23:00)
[2020-01-27 22:22] LABS: Hemoglobin 6.7 g/dL (13.5-17.5)
[2020-01-27 22:24] LABS: Basophils % (manual) 0 (0.0-2.0); Blast Cells 0; Eosinophils % (manual) 0 (0-7); Promyelocytes % 0; Reactive Lymphocytes 0
[2020-01-27] MEDS ORDERED: SODIUM BICARBONATE 50ML VIAL 100 ML in SOD CHL 0.45% 1,000 ML IV SCH (22:30)
[2020-01-27] MEDS: PROPOFOL 100 ML IV SCH (22:30)
[2020-01-27 22:31] LABS: Albumin 1.4 g/dL (3.4-5.0)
[2020-01-27 22:34] LABS: BUN/Creatinine Ratio 30.1; Bilirubin, Total 0.5 mg/dL (0.2-1.0); Total Protein 3.7 g/dL (6.4-8.2)
[2020-01-27 22:41] LABS: Calcium 14.5 mg/dL (8.5-10.1); Potassium 6.1 mmol/L (3.5-5.1)
[2020-01-27] MEDS ORDERED: SODIUM ZIRCONIUM CYCL 10 GM PAK ONE (22:53)
[2020-01-27] MEDS ORDERED: CALCIUM GLUC 4.65 MEQ/10ML 10 ML IV ONE (22:53)
[2020-01-27] MEDS ORDERED: DEXTROSE 50% SYRINGE 50 ML IV ONE (22:53)
[2020-01-27] MEDS ORDERED: DEXTROSE (50%) 50ML SYRG IV ONE (23:00)
[2020-01-27] MEDS ORDERED: OCTREOTIDE ACETATE 100 MCG/ML VL ONE ×2 (23:00→23:05)
[2020-01-27] MEDS ORDERED: SODIUM ZIRCONIUM CYCL 10 GM PAK PO ONE (23:00)
[2020-01-27] MEDS ORDERED: InsuLIN REG 1unit/0.01ml Soln (100units/ml) IV ONE (23:00)
[2020-01-27] MEDS ORDERED: PANTOPRAZOLE 40mg/50ML NS AE 50 ML IV ONE (23:01)
[2020-01-27 23:07] LABS: Band Neutrophils % (manual) 10; Lymphocytes % (manual) 9 (10.0-50.0); Myelocytes % 3
[2020-01-27 23:08] LABS: Metamyelocytes % 4; Monocytes % (manual) 5 (0-12)
[2020-01-27] MEDS ORDERED: VASOPRESSIN 20 UNIT/ML ONE (23:15)
[2020-01-27] MEDS: VASOPRESSIN 50 UNITS in D5W 5% 247.5 ML IV SCH (23:30)
[2020-01-27] MEDS: OCTREOTIDE ACETATE 500 MCG in SODIUM CHL 0.9% 99 ML IV SCH (23:30)
[2020-01-27] MEDS: PANTOPRAZOLE 40mg/50ML NS AE 50 ML IV SCH (23:30)
[2020-01-27] MEDS ORDERED: PHENYLEPHRINE IV 250 ML IV ONE (23:58)
[2020-01-28] VITALS (90 sets, daily range): BP systolic 68–151; BP diastolic 34–67
[2020-01-28] MEDS: EPINEPHrine HCL 250 ML IV SCH ×2 (00:30→20:25)
[2020-01-28 00:44] LABS: INR > 8.0 (0.9-1.15)
[2020-01-28] MEDS ORDERED: SODIUM BICARBONATE 8.4 % INJ 50ML VIAL IV ONE ×6 (00:52→07:45)
[2020-01-28] MEDS ORDERED: NOREPINEPHRINE 8 MG/250ML KIT 250 ML IV ONE (01:02)
[2020-01-28] MEDS ORDERED: PHYTONADIONE (VIT K)10 MG/ML 1ML VIAL SUBCUT ONE (01:15)
[2020-01-28] MEDS ORDERED: SODIUM BICARBONATE 50ML VIAL 150 ML in SOD CHL 0.45% 1,000 ML IV SCH (01:30)
[2020-01-28] MEDS ORDERED: VASOPRESSIN 20 UNIT/ML ONE ×2 (01:53→01:54)
[2020-01-28] MEDS: fentaNYL Drip 2500mCg/250mlNS 250 ML IV SCH (02:00)
[2020-01-28] MEDS: NOREPINEPHRINE 8 MG/250ML KIT 250 ML IV SCH ×4 (02:27→23:00)
[2020-01-28] MEDS ORDERED: OCTREOTIDE ACETATE 100 MCG/ML VL ONE ×2 (02:31→02:38)
[2020-01-28] MEDS: PANTOPRAZOLE 40mg/50ML NS AE 50 ML IV SCH ×5 (02:34→23:00)
[2020-01-28] MEDS: VASOPRESSIN 50 UNITS in D5W 5% 247.5 ML IV SCH (03:30)
[2020-01-28] MEDS: SODIUM BICARBONATE 50ML VIAL 150 ML in SOD CHL 0.45% 1,000 ML IV SCH ×3 (03:45→17:51)
[2020-01-28] MEDS ORDERED: PHENYLEPHRINE IV 250 ML IV ONE ×2 (05:08→08:15)
[2020-01-28] MEDS: metroNIDAZOLE 500MG/100ML 100 ML IV SCH ×3 (05:49→20:30)
[2020-01-28] MEDS: LEVOTHYROXINE SODIUM 50 MCG TAB PO SCH (05:49)
[2020-01-28] MEDS: InsuLIN REG 1unit/0.01ml Soln (100units/ml) SC SCH ×4 (05:49→17:52)
[2020-01-28] MEDS: ACCU-CHEK COMFORT CURVE STRIP VI SCH ×4 (05:49→17:52)
[2020-01-28] MEDS: methylPREDNISolone SOD SUCC 40 MG/ML VL IV SCH ×3 (05:49→21:13)
[2020-01-28] MEDS: MIDAZOLAM DRIP 50 mg/50mL 50 ML IV SCH ×3 (05:50→20:10)
[2020-01-28 06:55] LABS: Hematocrit 21.9 % (41.0-53.0); Mean Corpuscular Hemoglobin 27.5 pg (28.0-32.0); Mean Corpuscular Hgb Conc. 31.7 g/dL (32.0-36.0); Mean Corpuscular Volume 86.9 fL (80.0-100.0); Platelet Count (auto) 110 10^3/uL (140-450); Red Blood Cells 2.52 10^6/uL (4.5-5.90); Red Cell Distribution Width 14.6 % (11.8-14.3); White Blood Cell 28.4 10^3/uL (4.4-10.8)
[2020-01-28 07:01] LABS: Albumin 1.6 g/dL (3.4-5.0); Calcium 7.8 mg/dL (8.5-10.1); Magnesium 3.6 mg/dL (1.6-2.6); Potassium 3.7 mmol/L (3.5-5.1)
[2020-01-28 07:12] LABS: Hemoglobin 6.9 g/dL (13.5-17.5)
[2020-01-28 07:14] LABS: Basophils % (manual) 0 (0.0-2.0); Blast Cells 0; Eosinophils % (manual) 0 (0-7); Promyelocytes % 0; Reactive Lymphocytes 0
[2020-01-28] MEDS: PIPERACILLIN-TAZOB 3.375GM 100 ML IV SCH ×3 (07:15→21:14)
[2020-01-28 07:44] LABS: BUN/Creatinine Ratio 24.1; Bilirubin, Total 0.9 mg/dL (0.2-1.0); Total Protein 3.6 g/dL (6.4-8.2)
[2020-01-28 08:21] LABS: Phosphorus 13.3 mg/dL (2.5-4.90)
[2020-01-28] MEDS: PHENYLEPHRINE IV 250 ML IV SCH ×3 (08:45→21:03)
[2020-01-28 09:00] LABS: INR 3.04 (0.9-1.15); Partial Thromboplastin Time 53.7 sec (23.0-31.2)
[2020-01-28 09:10] LABS: Band Neutrophils % (manual) 12; Lymphocytes % (manual) 9 (10.0-50.0); Metamyelocytes % 10; Monocytes % (manual) 4 (0-12); Myelocytes % 3
[2020-01-28] MEDS: SERTRALINE HCL 50 MG TAB PO SCH (10:00)
[2020-01-28] MEDS: FAMOTIDINE 20 MG TAB PO SCH (10:00)
[2020-01-28] MEDS: ASPirin 81 mg TAB PO SCH (10:00)
[2020-01-28] MEDS: TOPIRAMATE 100 MG TAB PO SCH (10:00)
[2020-01-28] MEDS: ZINC SULFATE 220mg CAP or TAB PO SCH (10:00)
[2020-01-28] MEDS: ENOXAPARIN SOD 60 MG/0.6 ML SYRINGE SC SCH (10:00)
[2020-01-28] MEDS: ASCORBIC ACID 1,000 MG TAB PO SCH (10:00)
[2020-01-28] MEDS: CHOLECALCIFEROL (VITD3) 2,000 UNIT CAP PO SCH (10:00)
[2020-01-28] MEDS ORDERED: DOPamine 1600MCG/ML D5W 250 ML IV SCH (11:15)
[2020-01-28] MEDS: LINEZOLID 600MG/300ML 300 ML IV SCH (11:15)
[2020-01-28] MEDS: OCTREOTIDE ACETATE 500 MCG in SODIUM CHL 0.9% 99 ML IV SCH ×2 (14:00→22:00)
[2020-01-28] MEDS ORDERED: PPN PER PHARMACY IV NR ×7 (20:00)
[2020-01-28] MEDS: PROPOFOL 100 ML IV SCH (21:04)
[2020-01-28] MEDS ORDERED: EPINEPHrine HCL 1 MG/10 ML SYRG IV ONE (21:18)
[2020-01-28] MEDS ORDERED: SODIUM BICARBONATE 8.4% INJ 50ML SYRINGE IV ONE (21:18)
[2020-01-28] MEDS ORDERED: ATROPINE SULF 1 MG/10ml SYR IV ONE (21:18)
[2020-01-28] MEDS ORDERED: CALCIUM CHLOR(10%) 100MG/ML 10ML SYRINGE IV ONE (21:18)
[2020-01-28 22:26] LABS: Hematocrit 23.1 % (41.0-53.0); Hemoglobin 7.2 g/dL (13.5-17.5)
[2020-01-29] VITALS (37 sets, daily range): BP systolic 88–154; BP diastolic 50–66
[2020-01-29] MEDS: PHENYLEPHRINE IV 250 ML IV SCH (01:25)
[2020-01-29] MEDS: VASOPRESSIN 50 UNITS in D5W 5% 247.5 ML IV SCH (02:30)
[2020-01-29 04:38] LABS: Red Blood Cells 2.53 10^6/uL (4.5-5.90)
[2020-01-29 04:41] LABS: Hematocrit 22.2 % (41.0-53.0); Mean Corpuscular Hemoglobin 27.8 pg (28.0-32.0); Mean Corpuscular Hgb Conc. 31.6 g/dL (32.0-36.0); Mean Corpuscular Volume 87.8 fL (80.0-100.0); Platelet Count (auto) 68 10^3/uL (140-450); Red Cell Distribution Width 15.9 % (11.8-14.3)
[2020-01-29] MEDS: PANTOPRAZOLE 40mg/50ML NS AE 50 ML IV SCH (04:45)
[2020-01-29 04:58] LABS: Partial Thromboplastin Time 58.6 sec (23.0-31.2)
[2020-01-29] MEDS: metroNIDAZOLE 500MG/100ML 100 ML IV SCH (05:00)
[2020-01-29 05:16] LABS: Albumin 1.6 g/dL (3.4-5.0); BUN/Creatinine Ratio 16.8; Bilirubin, Total 1.7 mg/dL (0.2-1.0); Magnesium 3.4 mg/dL (1.6-2.6); Total Protein 3.5 g/dL (6.4-8.2)
[2020-01-29 05:19] LABS: Potassium 5.6 mmol/L (3.5-5.1)
[2020-01-29 05:22] LABS: INR 4.12 (0.9-1.15)
[2020-01-29 05:25] LABS: Blast Cells 0; Eosinophils % (manual) 0 (0-7); Reactive Lymphocytes 0
[2020-01-29] MEDS: SODIUM BICARBONATE 50ML VIAL 150 ML in SOD CHL 0.45% 1,000 ML IV SCH (05:36)
[2020-01-29] MEDS: OCTREOTIDE ACETATE 500 MCG in SODIUM CHL 0.9% 99 ML IV SCH (05:37)
[2020-01-29] MEDS: InsuLIN REG 1unit/0.01ml Soln (100units/ml) SC SCH ×2 (05:38)
[2020-01-29] MEDS: ACCU-CHEK COMFORT CURVE STRIP VI SCH ×2 (05:38)
[2020-01-29] MEDS: methylPREDNISolone SOD SUCC 40 MG/ML VL IV SCH (05:55)
[2020-01-29] MEDS: PIPERACILLIN-TAZOB 3.375GM 100 ML IV SCH (05:55)
[2020-01-29] MEDS: MIDAZOLAM DRIP 50 mg/50mL 50 ML IV SCH (06:02)
[2020-01-29 06:33] LABS: Phosphorus 16.1 mg/dL (2.5-4.90)
[2020-01-29 07:24] LABS: Band Neutrophils % (manual) 23; Lymphocytes % (manual) 11 (10.0-50.0)
[2020-01-29 07:25] LABS: Basophils % (manual) 1 (0.0-2.0); Metamyelocytes % 7; Monocytes % (manual) 1 (0-12); Myelocytes % 3; Promyelocytes % 1
[2020-01-29] MEDS ORDERED: EPINEPHrine HCL 1 MG/10 ML SYRG IV ONE (12:21)
[2020-01-29] MEDS ORDERED: ATROPINE SULF 1 MG/10ml SYR IV ONE (12:21)
[2020-01-29] MEDS ORDERED: SODIUM BICARBONATE 8.4% INJ 50ML SYRINGE IV ONE (12:21)
== END 2020-01-29 11:08 | DRG 871 ==
LOC: EDBD 17:47 → ER 17:47 → TELE 01-14 00:42 → TELE-EAST 01-14 04:53 → CATH ICU 01-27 19:41 → ICU WEST 01-28 10:39
PROVIDERS: ADMIT Nurse Practitioner; ATTEND Internal Medicine
PROC: XW033E5 Introduction of Remdesivir Anti-infective into Peripheral Vein, Percutaneous Approach, New Technology Group 5 (ICD-10-PCS; 2020-01-14)
PROC: 5A09357 Assistance with Respiratory Ventilation, Less than 24 Consecutive Hours, Continuous Positive Airway Pressure (ICD-10-PCS; 2020-01-15)
PROC: XW13325 Transfusion of Convalescent Plasma (Nonautologous) into Peripheral Vein, Percutaneous Approach, New Technology Group 5 (ICD-10-PCS; 2020-01-16)
PROC: 5A09357 Assistance with Respiratory Ventilation, Less than 24 Consecutive Hours, Continuous Positive Airway Pressure (ICD-10-PCS; 2020-01-16)
PROC: 5A09557 Assistance with Respiratory Ventilation, Greater than 96 Consecutive Hours, Continuous Positive Airway Pressure (ICD-10-PCS; 2020-01-22)
PROC: 02HV33Z Insertion of Infusion Device into Superior Vena Cava, Percutaneous Approach (ICD-10-PCS; 2020-01-27)
PROC: B548ZZA Ultrasonography of Superior Vena Cava, Guidance (ICD-10-PCS; 2020-01-27)
PROC: 30233K1 Transfusion of Nonautologous Frozen Plasma into Peripheral Vein, Percutaneous Approach (ICD-10-PCS; 2020-01-28)
PROC: 30233N1 Transfusion of Nonautologous Red Blood Cells into Peripheral Vein, Percutaneous Approach (ICD-10-PCS; 2020-01-28)
PROC: 5A12012 Performance of Cardiac Output, Single, Manual (ICD-10-PCS; principal; 2020-01-29)
PROC: 5A1945Z Respiratory Ventilation, 24-96 Consecutive Hours (ICD-10-PCS; 2020-01-29)
PROC: 0BH17EZ Insertion of Endotracheal Airway into Trachea, Via Natural or Artificial Opening (ICD-10-PCS; 2020-01-29)
DX: A41.89 Other specified sepsis (principal); U07.1 COVID-19; J12.89 Other viral pneumonia; J96.01 Acute respiratory failure with hypoxia; I21.4 Non-ST elevation (NSTEMI) myocardial infarction; N17.0 Acute kidney failure with tubular necrosis; K72.00 Acute and subacute hepatic failure without coma; J44.1 Chronic obstructive pulmonary disease with (acute) exacerbation; E44.0 Moderate protein-calorie malnutrition; J45.901 Unspecified asthma with (acute) exacerbation; J44.0 Chronic obstructive pulmonary disease with (acute) lower respiratory infection; G93.1 Anoxic brain damage, not elsewhere classified; K92.2 Gastrointestinal hemorrhage, unspecified; Z66 Do not resuscitate; E87.6 Hypokalemia; I50.9 Heart failure, unspecified; E03.9 Hypothyroidism, unspecified; E66.9 Obesity, unspecified; I11.0 Hypertensive heart disease with heart failure; F32.9 Major depressive disorder, single episode, unspecified; E11.65 Type 2 diabetes mellitus with hyperglycemia; D64.9 Anemia, unspecified; E78.5 Hyperlipidemia, unspecified; E11.21 Type 2 diabetes mellitus with diabetic nephropathy; F41.9 Anxiety disorder, unspecified; G89.29 Other chronic pain; Z68.26 Body mass index [BMI] 26.0-26.9, adult
CPT/HCPCS: 36415; 36600; 71045; 76700; 80048; 80053; 81001; 82040; 82270; 82570; 82728; 82805; 82962; 83036; 83605; 83615; 83735; 83880; 84100; 84300; 84443; 84478; 84484; 85007; 85014; 85018; 85025; 85027; 85379; 85384; 85610; 85730; 86141; 86850; 86900; 86901; 86920; 87070; 87077; 87186; 87205; 87426; 92950; 93005; 93970; 94002; 94003; 94640; 94660; 96365; 96375; 97110; 97116; 97163; 97530; G0378; J0171; J0330; J0461; J0696; J1100; J1815; J2250; J2543; J2704; J3430; J3490; J7060; J7131